=== PATIENT | male | born 1940 | race Caucasian/White ===

== ENCOUNTER → 2017-02-07 | Outpatient (CLI) | payer OTHER ==
[~2017-02-07] MED LIST: ASPEC325 PO; ATEN-173 PO; ATOR-24 PO; CLB200 PO; CPR500 PO; DVN160125 PO; HYDR-5688 PO; LEVO-217 PO; MULT-506 PO; OXYSR10 PO; PANT40TA PO; TAMS0.4C38 PO; ZOLP10TA PO
[2017-02-07 18:39] LABS: ALT/SGPT 56 U/L (12-78); AST/SGOT 39 U/L (15-37); BLOOD UREA NITROGEN 23 mg/dl (7-18); BUN/CREATININE RATIO 19.3 (10-20); CALCIUM 9.4 mg/dl (8.5-10.1); CARBON DIOXIDE 28 mmol/L (21-32); CHLORIDE 105 mmol/L (98-107); CHOLESTEROL 126 mg/dl (0-200); GLUCOSE 104 mg/dl (70-99); POTASSIUM 4.2 mmol/L (3.5-5.1); SODIUM 141 mmol/L (136-145)
[2017-02-07 18:44] LABS: BASO % 0.5 %; BASO ABS # 0.04 K/uL (0-0.2); COMPLETE YES; EOS % 5.2 %; HEMATOCRIT 38.8 % (42-52); IG% 0.3 %; LYMPH % 32.1 %; LYMPH ABS # 2.51 K/uL (1.2-3.4); MEAN CELL VOLUME 88.4 fL (80-100); MEAN CORPUSCULAR HEMOGLOBIN 30.1 pg (25-34); MEAN PLATELET VOLUME 9.4 fL (7.4-10.4); MONO % 10.4 %; NEUT % 51.5 %; PLATELET COUNT 254 K/uL (130-400); RED BLOOD COUNT 4.39 M/uL (4.7-6.1); WHITE BLOOD COUNT 7.82 K/uL (4.8-10.8)
[2017-02-07 18:49] LABS: CHOLESTEROL/HDL RATIO 3.2; HDL CHOLESTEROL 40 mg/dl; LDL CHOLESTEROL CALCULATED 66 mg/dl; TRIGLYCERIDES 102 mg/dl (0-150); VERY LOW DENSITY LIPOPROT CALC 20 mg/dl
== END | disposition home or self-care (01) ==
LOC: C.LABMFLN 12:24
PROVIDERS: ATTEND Family Medicine
DX: I25.10 Atherosclerotic heart disease of native coronary artery without angina pectoris (principal); M25.512 Pain in left shoulder; E03.9 Hypothyroidism, unspecified; E78.00 Pure hypercholesterolemia, unspecified; R53.83 Other fatigue

== ENCOUNTER → 2017-09-27 | Outpatient (CLI) | payer OTHER ==
[2017-09-27 13:29] LABS: ALT/SGPT 44 U/L (12-78); AST/SGOT 21 U/L (15-37); BLOOD UREA NITROGEN 33 mg/dl (7-18); BUN/CREATININE RATIO 28.7 (10-20); CALCIUM 8.8 mg/dl (8.5-10.1); CARBON DIOXIDE 26 mmol/L (21-32); CHLORIDE 104 mmol/L (98-107); CHOLESTEROL 132 mg/dl (0-200); CREATININE 1.15 mg/dl (0.60-1.40); GLUCOSE 120 mg/dl (70-99); POTASSIUM 3.9 mmol/L (3.5-5.1); SODIUM 136 mmol/L (136-145)
[2017-09-27 13:33] LABS: CHOLESTEROL/HDL RATIO 2.2; HDL CHOLESTEROL 60 mg/dl; LDL CHOLESTEROL CALCULATED 51 mg/dl; TRIGLYCERIDES 104 mg/dl (0-150); VERY LOW DENSITY LIPOPROT CALC 21 mg/dl
== END | disposition home or self-care (01) ==
LOC: C.LABMFLN 09:25
PROVIDERS: ATTEND Family Medicine
DX: E03.9 Hypothyroidism, unspecified (principal); I25.10 Atherosclerotic heart disease of native coronary artery without angina pectoris; E78.00 Pure hypercholesterolemia, unspecified; Z12.5 Encounter for screening for malignant neoplasm of prostate

== ENCOUNTER → 2018-02-05 | Outpatient (CLI) | payer OTHER ==
[2018-02-05 14:04] LABS: ALT/SGPT 55 U/L (12-78); AST/SGOT 34 U/L (15-37); BLOOD UREA NITROGEN 20 mg/dl (7-18); CALCIUM 9.3 mg/dl (8.5-10.1); CARBON DIOXIDE 26 mmol/L (21-32); CREATININE 1.22 mg/dl (0.60-1.40); GLUCOSE 125 mg/dl (70-99); POTASSIUM 4.1 mmol/L (3.5-5.1); SODIUM 136 mmol/L (136-145)
[2018-02-05 14:14] LABS: CHOLESTEROL 107 mg/dl (0-200); LDL CHOLESTEROL CALCULATED 54 mg/dl
== END | disposition home or self-care (01) ==
LOC: C.LABMFLN 09:41
PROVIDERS: ATTEND Family Medicine
DX: E03.9 Hypothyroidism, unspecified (principal); I25.10 Atherosclerotic heart disease of native coronary artery without angina pectoris; E78.00 Pure hypercholesterolemia, unspecified